=== PATIENT | male | born 1955 | race Caucasian/White ===

== ENCOUNTER 2016-04-06 13:12 | Inpatient (IN) | payer OTHER ==
--- NOTE | ~2016-04-06 | HP ---
History And Physical [facility] [address] [place]. [address] NAME: RHIANNA TAYLOR : 55 STATUS : ADM IN [facility]#: [id number] AGE: 60 ADM/REG DATE : 04/06/16 MR#: [id number] REPORT SERV DATE: 04/06/16 DICTATED BY: DAGO DUNCAN DATE: 04/06/16 REPORT STATUS : Draft TRANSCRIBED BY: MODL DATE: 04/06/16 DATE OF ADMISSION: 04/06/2016 REASON FOR ADMISSION: Increased dyspnea and edema. HISTORY OF PRESENT ILLNESS: The patient is a pleasant 60-year-old white male with a history of coronary artery disease and chronic systolic congestive heart failure, who presented to the emergency department [facility] with complaints of worsening dyspnea, orthopnea, and lower extremity edema over the past six weeks. He had began having dyspnea on exertion initially, but this has progressed to orthopnea to the point where he was having to sleep in a recliner over the past two to three weeks. He describes a significant weight gain of about 12 pounds within the past few days despite taking extra Lasix. His workup here in the emergency department showed a mildly elevated BNP level of 391 with pulmonary vascular congestion on chest x-ray and marked lower extremity edema. He was given IV Bumex and a Pacheco catheter was placed, and he reports that his swelling has improved dramatically as well as his shortness of breath. Currently, he is resting in bed, in no acute distress. PAST MEDICAL HISTORY: Significant for coronary artery disease, status post remote bypass surgery. The patient's last cardiac catheterization was done 03/20/2015, which showed a patent COTE graft to the second diagonal branch with septal collateral vessels from the mid LAD to the right posterior descending branch. All his saphenous vein grafts were previously occluded. His left ventricular ejection fraction was 40% at that time. This study showed no significant change from the previous one and the patient was managed medically. Other history is remarkable for hypertension, hyperlipidemia, peripheral neuropathy, and diabetes which has been poorly controlled up until recently with his last hemoglobin A1c showing significant improvement. PAST SURGICAL HISTORY: Includes cholecystectomy, appendectomy, knee surgery, and redo coronary artery bypass surgery in 2003. SOCIAL HISTORY: The patient has smoked up until about three weeks ago. He is and lives with his . FAMILY HISTORY: Positive for coronary artery disease. REVIEW OF SYSTEMS: The patient complains dyspnea on exertion as well as with bending over. He reports significant orthopnea and has been sleeping in a recliner for the past few weeks. The patient denies any cough, wheeze, or sputum production. He denies any recent fever or chills. No dysuria. He does complain of constipation with hemorrhoids. He also has had some intermittent chest pain as well and this is not necessarily exertional in nature. PHYSICAL EXAMINATION: VITAL SIGNS: Blood pressure is 173/63, heart rate is 66 and regular, respirations are 18 and nonlabored. The patient is afebrile. History And Physical [address] [address] NAME: RHIANNA TAYLOR : 55 STATUS : ADM IN [facility]#: [id number] AGE: 60 ADM/REG DATE : 04/06/16 MR#: [id number] REPORT SERV DATE: 04/06/16 DICTATED BY: DAGO DUNCAN DATE: 04/06/16 REPORT STATUS : Draft TRANSCRIBED BY: CAR DATE: 04/06/16 GENERAL APPEARANCE: The patient is a morbidly obese and chronically ill-appearing white male, in no acute distress. HEENT: Unremarkable. NECK: Shows no jugular venous distention with good carotid upstroke. CHEST: Remarkable for some expiratory wheezes bilaterally as well as a few scattered rhonchi. CARDIOVASCULAR: PMI is lateral to the midclavicular line. S1 is normal. S2 is narrowly split. No gallop is present. ABDOMEN: Somewhat distended, but it is soft and nontender with normal bowel sounds. EXTREMITIES: Show 2+ pitting edema in bilateral lower extremities, but no cyanosis or clubbing. SKIN: Warm and dry with no pallor or icterus. NEURO/PSYCH: The patient is alert and oriented x3 with appropriate affect. LABORATORY AND DIAGNOSTIC DATA: EKG shows sinus bradycardia at the rate of 57 with occasional PACs and inferior scar and nonspecific ST-T changes. No acute injury pattern is present. CBC shows a white count of 6.2, hemoglobin 10.6, hematocrit 33.2, platelets 210. Chemistry panel shows a sodium of 144, potassium 3.6, BUN 29, creatinine 2.0, which is an improvement from 2.6 on labs done by PCP on the 03/30/2016, a week ago. Magnesium is 1.9. Troponin is 0.05 and BNP was 392. Chest x-ray showed some pulmonary vascular congestion but otherwise was benign. IMPRESSION: 1. Acute on chronic systolic congestive heart failure. 2. Coronary artery disease, status post remote bypass surgery. 3. Chronic kidney disease (unsure of the patient's baseline). 4. Hypertension. 5. Obstructive sleep apnea with noncompliance with BiPAP or CPAP therapy. 6. Diabetes mellitus type 2. 7. Morbid obesity. PLAN: 1. We will admit the patient to telemetry and continue diuresis as ordered by the ER physician. We will check labs and an echocardiogram in the morning and consider consulting Nephrology depending on the patient's renal function. 2. Serial cardiac enzymes will be drawn to rule out ischemia. 3. I briefly discussed the importance of sodium restriction and compliance with therapy. Apparently, the patient has a history of poor compliance with medications as well as dietary restrictions. Further interventions to be dictated by clinical course. CARY/CAR Dago Duncan NP History And Physical [address] [address] NAME: RHIANNA TAYLOR : 55 STATUS : ADM IN PAT#: [id number] AGE: 60 ADM/REG DATE : 04/06/16 MR#: [id number] REPORT SERV DATE: 04/06/16 DICTATED BY: DAGO DUNCAN DATE: 04/06/16 REPORT STATUS : Draft TRANSCRIBED BY: MODL DATE: 04/06/16 / [id number] CC: Ez Charles M.D., F.A.C.C. Dr. Wagner Fung
--- NOTE | ~2016-04-06 | CN ---
Consultation Report [facility] [address] [place]. [address] NAME: RHIANNA TAYLOR : 55 STATUS : DIS IN PAT#: [id number] AGE: 60 ADM/REG DATE : 04/06/16 MR#: [id number] REPORT SERV DATE: 04/16/16 DICTATED BY: ROBERT COLEMAN DATE: 04/07/16 REPORT STATUS : Draft TRANSCRIBED BY: MODL DATE: 04/07/16 DATE OF CONSULTATION: CONSULTATION REASON FOR CONSULT: Diabetes management. HISTORY OF PRESENT ILLNESS: This is a pleasant 60-year-old white male who reports that he has had a worsening dyspnea, developed over the past several weeks up to six weeks, also that he has been sleeping in a chair, and lower extremity edema has gotten worse over that timeframe as well as an approximate 12-pound weight gain despite taking some additional Lasix at home. The patient also reports that he has not been using his CPAP on a consistent basis except for the past week when he obtained a new nasal mask. He says that he was recently at the [facility], which is primary care. A lab work was drawn and they told him that his kidney function had worsened. They did stop his metformin at that time, and also told him to stop his VIPUL inhibitor as well. He reports that in the past he had been on Levemir insulin and also Lantus insulin and that he has been on NovoLog insulin in the past too plus metformin, but was not finding this was helping to control his diabetes, and recently within the past few months, he was changed to NPH insulin twice a day and Novolin R insulin with meals along with his metformin and he states that this regimen has given him a better control of his overall sugars and most recent hemoglobin A1c checked in March of this year is 7.8. PAST MEDICAL HISTORY: Includes coronary artery disease, hypertension, hyperlipidemia, diabetes type 2, peripheral neuropathy, and osteoarthritis. PAST SURGICAL HISTORY: Includes a cholecystectomy; an appendectomy; knee surgery; redo coronary artery bypass surgery in 2003; heart catheterization most recently in March of 2015, he has ejection fraction of 40%. SOCIAL HISTORY: Tobacco: Remote. Denies any alcohol use. He is currently , disabled, lives with his . FAMILY HISTORY: Positive for coronary artery disease. REVIEW OF SYSTEMS: Negative except for pertinent as mentioned in the above HPI. PHYSICAL EXAMINATION: GENERAL: This is a generally cooperative, awake and alert x3 for exam, no focal deficits. NECK: No appreciable lymphadenopathy is palpated. +1 JVD. Unable to assess the thyroid given the anatomy and enlarged neck. LUNGS: Diminished to the bases and positive crackles, but otherwise, normal respiratory effort. Of note, when he is sleeping at the beginning of the exam, it was clear he was having apnea event, however. Consultation Report [facility] [id number] [place]. [address] NAME: RHIANNA TAYLOR : 55 STATUS : DIS IN PAT#: [id number] AGE: 60 ADM/REG DATE : 04/06/16 MR#: [id number] REPORT SERV DATE: 04/16/16 DICTATED BY: ROBERT COLEMAN DATE: 04/07/16 REPORT STATUS : Draft TRANSCRIBED BY: CAR DATE: 04/07/16 CARDIOVASCULAR IRBY: No murmurs, rubs, or gallops. Regular rate and rhythm. ABDOMEN: Soft and nontender. Morbidly obese. Unable to assess any of his organs. Active bowel sounds. EXTREMITIES: He has +2 bilateral lower extremity edema. Normal distal pulses. HEENT: PERRLA is noted. Sclerae are clear. Otherwise, skin is warm and dry. LABORATORY DATA: Lab work shows a sodium of 143, potassium 3.6, BUN of 27, and creatinine of 1.78. White blood cells of 6.2, hemoglobin 10.6, and hematocrit 33.2. Troponin of 0.05 and a BNP of 391.8. Blood sugars in review showed a fasting sugar this morning of 62, which at lunch was 107. ASSESSMENT: 1. Diabetes type 2, hemoglobin A1c of 7.8. 2. Acute kidney injury on chronic kidney disease, most recent creatinine 1.78. 3. Acute on chronic systolic heart failure with an ejection fraction of 40%. 4. Morbid obesity. 5. Hypertension. 6. Obstructive sleep apnea. 7. Hypothyroid. PLAN: We will adjust his insulin, decreasing his overall insulin burden, decreasing his NPH and Novolin R. He has likely reached the limit of his ability to continue metformin, would not continue that post hospitalization. Would also recommend decreasing his VIPUL inhibitor at discharge and would also decrease his Neurontin dose going forward, and we will go ahead and decrease his Neurontin here in the hospital. He is continuing diuresis with Bumex per Cardiology. Also discussed the need for an outpatient sleep study and use of CPAP here while hospitalized as well. Given the fact that he is on Synthroid, we will check a TSH and he is complaining of some mild dysuria, we will obtain a UA for completeness sake. I have discussed this at length with the patient and his , and she is in agreement with this plan going forward. We appreciate the opportunity to participate in this consult. LACY/CAR Robert Coleman NP / [id number] CC: Ez Charles M.D., FCIERRA MONROY
--- NOTE | ~2016-04-06 | DS ---
Discharge Summary [facility] [address] [place]. [address] NAME: RHIANNA TAYLOR : 55 STATUS : DIS IN PAT#: [id number] AGE: 60 ADM/REG DATE : 04/06/16 MR#: [id number] REPORT SERV DATE: 04/27/16 DICTATED BY: EZ CHARLES DATE: 04/26/16 REPORT STATUS : Draft TRANSCRIBED BY: MODFabby DATE: 04/26/16 Data Collection from hospitalization DISCHARGE DIAGNOSES: 1. Acute on chronic congestive heart failure. 2. Coronary artery disease. 3. Diabetes mellitus. 4. Chronic renal disease. 5. Hypercholesterolemia. 6. Hypertension. 7. Peripheral neuropathy. 8. Tobacco use. CONSULTATIONS: Robert Jameson NP PROCEDURES PERFORMED: None. MEDICATIONS: Norvasc 5 mg daily, Lipitor 40 mg daily, Coreg 12.5 mg twice a day, vitamin D3 2000 units daily, Benadryl 50 mg every eight hours as needed, TriCor 145 mg daily, ferrous sulfate 325 mg three times a day, Neurontin 300 mg twice a day, [place] 10/325 one tablet three times a day, Novolin N 44 units subcutaneously twice a day, Novolin R 26 units subcutaneously before meals, Imdur 120 mg daily, levothyroxine 37.5 mcg daily, Creon one capsule three times a day with meals, Mag-Ox 400 mg twice a day, Glucophage 500 mg after breakfast and supper as instructed, Dahlia 30 mg twice a day, Theragran-M one tablet daily, fish oil 2000 mg twice a day, Prilosec 20 mg twice a day, Paxil 30 mg daily, K-Dur 20 mEq as instructed, Phenergan 25 mg three times a day as needed, Requip 2 mg four times a day, Demadex 20 mg daily, and clindamycin one application topically twice a day. He was instructed not to continue on furosemide, lisinopril, or meloxicam. CONDITION AT DISCHARGE: Stable. DISPOSITION: The patient was discharged home on a low-sodium diet with activities as instructed. He would follow up with Dr. Shiraz Ramirez as instructed. He would follow up with Dr. Tru Aguila for a sleep study as an outpatient. He would follow up with Dr. Ez Zee as directed. HOSPITAL COURSE: This is a 60-year-old man who has a history of coronary artery disease and chronic systolic congestive heart failure who presented to the emergency department after being referred from the [facility] on the day of this admission with complaints of worsening dyspnea, orthopnea, and lower extremity edema over the past six weeks. He began having dyspnea on exertion initially, but this progressed to orthopnea to the point where he was having to sleep in a recliner over the past two to three weeks prior to admission. He described a significant weight gain of about 12 pounds within the past few days despite taking extra Lasix. Workup in the emergency department showed mildly elevated BNP at 391 with pulmonary vascular congestion on chest x-ray and marked lower extremity edema. He was given IV Bumex and a Pacheco catheter was placed. He reports that his swelling improved dramatically as well as his shortness of breath. He was admitted to the hospital for further evaluation and treatment. Discharge Summary [address] [place]. [address] NAME: RHIANNA TAYLOR KATIA : 55 STATUS : DIS IN PAT#: [id number] AGE: 60 ADM/REG DATE : 04/06/16 MR#: [id number] REPORT SERV DATE: 04/27/16 DICTATED BY: EZ CHARLES DATE: 04/26/16 REPORT STATUS : Draft TRANSCRIBED BY: CAR DATE: 04/26/16 Upon admission, his EKG showed sinus bradycardia with a rate of 57 and occasional PACs and inferior scar and nonspecific ST-T changes. No acute injury pattern was present. Chest x- ray showed some pulmonary vascular congestion, but was otherwise benign. He was felt to have acute on chronic systolic congestive heart failure. He was admitted to telemetry and we continued diuresis as ordered by the emergency room physician. Labs and an echocardiogram would be obtained. Serial cardiac enzymes would be checked to rule out ischemia. We discussed the importance of sodium restriction and compliance with therapy. Apparently, the patient has a history of poor compliance with medication as well as dietary restrictions. The following day, an echocardiogram was performed. The patient was seen by Robert Jameson regarding diabetes management. The patient reported he had not been using his CPAP on a consistent basis except for the past week when he obtained a new nasal mask. He said that lab work was drawn at the [facility] and they told him that his kidney function had worsened, they did stop his metformin at that time, and also told him to stop VIPUL inhibitor as well. He reports in the past that he had been on Levemir insulin and also Lantus insulin and that he had been on NovoLog insulin in the past plus metformin, but was not finding this helpful to control his diabetes. Within the past few months, he was changed to NPH insulin twice a day and Novolin R insulin with meals along with his metformin and he said that this regimen had given him a better control of his overall sugars and most recent hemoglobin A1c in March of this year was 7.8. His insulin was going to be adjusted and we would decrease the overall insulin burden by decreasing his NPH and Novolin R. It was felt that he had likely reached the limit of his ability to continue metformin and we would not continue that post hospitalization. She also recommended decreasing VIPUL inhibitor at discharge and also decrease the Neurontin does going forward. Neurontin would be decreased here in the hospital. Diuresis continued with Bumex. The need for an outpatient sleep study was discussed and use of CPAP here while hospitalized was also discussed. Given the fact that he is on Synthroid, we were going to check a TSH. He did complain of some mild dysuria. Urinalysis would be obtained for completeness sake. On 04/08/2016, he was in no distress. He had some scattered wheezing. He had 1+ left lower extremity edema that had improved significantly. We reinforced the importance of CPAP compliance. Norvasc was increased. Hydralazine was continued. He was changed to oral Bumex. The Pacheco catheter was removed. We encouraged him to ambulate. His swelling had improved. He had less dyspnea. Systolic heart failure was improving. Norvasc was increased. The next day, he did have some hypoglycemia that morning. He did complain of back pain which is chronic. Insulin was adjusted. Oral Demadex was being given. He was wanting to go home. Coreg was decreased. On 04/10/2016, he reported that his breathing and his lower extremity edema were at their baseline. His lungs were clear. He had 1+ edema. Creatinine level was 2.16. He was up sitting in a chair and said he was feeling better. He was not sleeping well. Furosemide was continued. Coreg was decreased. Discharge instructions were given. Due to his improved and stable condition, he was discharged home with the above-stated instructions. Information collected by: Emerita Cruz I submit the above information as my discharge summary. Discharge Summary [facility] [address] [place]. [address] NAME: RHIANNA TAYLOR : 55 STATUS : DIS IN PAT#: [id number] AGE: 60 ADM/REG DATE : 04/06/16 MR#: [id number] REPORT SERV DATE: 04/27/16 DICTATED BY: EZ CHARLES DATE: 04/26/16 REPORT STATUS : Draft TRANSCRIBED BY: MODL DATE: 04/26/16 TG/CAR Ez Charles M.D., Torri / [id number] CC: Ez Charles M.D., CIERRA JOHNSON
[~2016-04-06 13:12] MED LIST: AMYLASE PO; ASA5GR PO; ASABAYER PO; B12250T PO; BEN25 PO; BENADRYL 50 MG50 MG PO; BENGAY TOP; COREG25 PO; FISH OIL PO; FISH-EPA1000 MG PO; FLEX PO; GLUCOPHAGE1000 MG PO; GLUCPH PO; IMDUR120 PO; IMDUR60 PO; IRON SUPPLEMENT PO; L20 PO; LANTUS SC; LIPITOR20 PO; LIPITOR40 PO; LISINOPRIL40 MG PO; LOM PO; LOPID6 PO; LORTAB10 PO; MAG OX PO; MAGOX4 PO; MOBIC7.5 PO; MSCONT15 PO; MSCONTIN PO; MULTIVIT/MIN PO; NITROQUICK0.4 MG SL; NITROSTAT0.4 MG SL; NORCO1 TAB PO; NORV5 PO; NOVOLOG SC; PAXIL30 MG PO; PR25 PO; PREV30 PO; PRILO PO; PRIN10 PO; REQUIP2 PO; REQUIP4 MG PO; SYN.025B PO; TOPAMAX200 MG PO; TRICOR145 PO; VIOKACE 10,4401 EACH PO; X5 PO; [UNRECOGNIZED DRUG - CODE] PO
[2016-04-06 13:39] LABS: BASOPHILS 0.3 %; BASOPHILS ABSOLUTE 0.02 10/3/uL (0.0-0.16); EOSINOPHILS 3.2 %; HEMATOCRIT 33.2 % (40.0-51.0); HEMOGLOBIN 10.6 g/dL (13.6-17.8); IMMATURE GRANULOCYTES 0.2 %; IMMATURE GRANULOCYTES ABSOLUTE 0.01 10/3/uL (0.0-0.11); LYMPHOCYTES 14.8 %; LYMPHOCYTES ABSOLUTE 0.91 10/3/uL (0.67-4.30); MEAN CORPUS HGB CONC 31.9 g/dL (32.0-36.0); MEAN CORPUSCULAR VOLUME 90.7 fL (80-100); MEAN PLATELET VOLUME 9.4 fL (9.2-13.0); MONOCYTES 6.2 %; MONOCYTES ABSOLUTE 0.38 10/3/uL (0.21-1.20); NEUTROPHILS 75.3 %; NEUTROPHILS ABSOLUTE 4.64 10/3/uL (2.02-8.40); PLATELET COUNT 210 10/3/uL (150-400); RED CELL COUNT 3.66 10/6/uL (4.7-6.1)
[2016-04-06 13:45] LABS: INTERNATIONAL NORMAL RATI 1.4 UNITS (-)
[2016-04-06 13:46] LABS: ER CBC TAT 0 Hrs 12 MinsNP; MANUAL DIFF NO %; RBC DISTRIBUTION WIDTH 15.9 % (12.0-16.0); WHITE BLOOD CELLS 6.2 10/3/uL (4.5-10.5)
[2016-04-06 13:48] LABS: PROTIME (NOT ORD) 16.9 SEC (12.0-14.5)
[2016-04-06 13:55] LABS: BUN (BLOOD UREA NITROGEN) 29 MG/DL (6-23); CALCIUM, SERUM 8.5 MG/DL (8.5-10.4); CHLORIDE, SERUM 106 MMOL/L (96-112); CO2 (CARBON DIOXIDE) 29 MMOL/L (24-34); GFR AFRICAN AMERICAN 41 ML/MIN (>=60); GFR NON AFRICAN AMERICAN 35 ML/MIN (>=60); GLUCOSE, SERUM 109 MG/DL (60-99); POTASSIUM, SERUM 3.6 MMOL/L (3.5-5.3); SODIUM, SERUM 144 MMOL/L (135-148)
[2016-04-06 13:58] LABS: CHEST PAIN PROFILE TAT 0 Hrs 24 Mins; TROPONIN I 0.05 NG/ML (<0.05)
[2016-04-06] MEDS ORDERED: NORV5 PO (15:37)
[2016-04-06] MEDS ORDERED: CREON DR 3,0001 EACH PO (15:42)
[2016-04-06] MEDS ORDERED: LIPITOR40 PO (15:43)
[2016-04-06] MEDS ORDERED: COREG25 PO (15:44)
[2016-04-06] MEDS ORDERED: VITAMIN D31000 UNIT PO (15:44)
[2016-04-06] MEDS ORDERED: CLINDAMYCIN 1% TOP (15:45)
[2016-04-06] MEDS ORDERED: FERROUS SULF325 M1 PO (15:46)
[2016-04-06] MEDS ORDERED: BEN25 PO (15:46)
[2016-04-06] MEDS ORDERED: FISH-EPA1000 MG PO (15:46)
[2016-04-06] MEDS ORDERED: TRICOR145 PO (15:46)
[2016-04-06] MEDS ORDERED: L20 PO (15:47)
[2016-04-06] MEDS ORDERED: NEUR300 PO (15:47)
[2016-04-06] MEDS ORDERED: NORCO1 TAB PO (15:47)
[2016-04-06] MEDS ORDERED: INSNOVN SC (15:48)
[2016-04-06] MEDS ORDERED: INSNOVR SC (15:48)
[2016-04-06] MEDS ORDERED: LISINOPRIL40 MG PO (15:49)
[2016-04-06] MEDS ORDERED: LEVOTHYROXIN75 MCG PO (15:49)
[2016-04-06] MEDS ORDERED: MAGOX4 PO (15:49)
[2016-04-06] MEDS ORDERED: IMDUR120 PO (15:49)
[2016-04-06] MEDS ORDERED: MSCONTIN PO (15:50)
[2016-04-06] MEDS ORDERED: GLUCPH PO (15:50)
[2016-04-06] MEDS ORDERED: MOBIC7.5 PO (15:50)
[2016-04-06] MEDS ORDERED: PRILO PO (15:51)
[2016-04-06] MEDS ORDERED: PR25 PO (15:51)
[2016-04-06] MEDS ORDERED: PAXIL30 MG PO (15:51)
[2016-04-06] MEDS ORDERED: THERGRANM PO (15:51)
[2016-04-06] MEDS ORDERED: REQUIP2 PO (15:52)
[2016-04-07 07:08] LABS: A/G RATIO 0.8 (0.7-1.9); ALKALINE PHOSPHATASE 40 U/L (45-117); BUN (BLOOD UREA NITROGEN) 27 MG/DL (6-23); CALCIUM, SERUM 8.6 MG/DL (8.5-10.4); CHLORIDE, SERUM 105 MMOL/L (96-112); CO2 (CARBON DIOXIDE) 28 MMOL/L (24-34); CREATININE 1.78 MG/DL (0.70-1.30); GFR AFRICAN AMERICAN 47 ML/MIN (>=60); GFR NON AFRICAN AMERICAN 41 ML/MIN (>=60); GLOBULIN 3.8 G/DL (2.5-4.1); POTASSIUM, SERUM 3.6 MMOL/L (3.5-5.3); SGOT(AST) 16 U/L (5-40); SGPT(ALT) 18 U/L (5-65); SODIUM, SERUM 143 MMOL/L (135-148); TOTAL BILIRUBIN 0.7 MG/DL (0-1.2); TOTAL PROTEIN 6.8 G/DL (6.0-8.5)
[2016-04-07 07:19] LABS: GLUCOSE, SERUM 66 MG/DL (60-99)
[2016-04-07 07:23] LABS: TROPONIN I 0.05 NG/ML (<0.05)
[2016-04-07 17:31] LABS: ASCORBIC ACID (UR NOT ORDER) NEG (NEG); BILIRUBIN, URINE NEGATIVE (NEG); KETONE, URINE NEGATIVE (NEG); LEUKOCYTE ESTERASE(NOT OR TRACE (NEG); WBC (NOT ORDERED) (RFLEX) 7 (0-5)
[2016-04-08 06:25] LABS: BUN (BLOOD UREA NITROGEN) 32 MG/DL (6-23); CALCIUM, SERUM 8.6 MG/DL (8.5-10.4); CHLORIDE, SERUM 103 MMOL/L (96-112); CO2 (CARBON DIOXIDE) 30 MMOL/L (24-34); CREATININE 2.19 MG/DL (0.70-1.30); GFR AFRICAN AMERICAN 37 ML/MIN (>=60); GFR NON AFRICAN AMERICAN 32 ML/MIN (>=60); GLUCOSE, SERUM 173 MG/DL (60-99); POTASSIUM, SERUM 4.2 MMOL/L (3.5-5.3); SODIUM, SERUM 140 MMOL/L (135-148)
[2016-04-09 05:55] LABS: BASOPHILS 0.3 %; BASOPHILS ABSOLUTE 0.02 10/3/uL (0.0-0.16); EOSINOPHILS 2.9 %; EOSINOPHILS ABSOLUTE 0.23 10/3/uL (0.0-0.53); HEMATOCRIT 31.9 % (40.0-51.0); IMMATURE GRANULOCYTES 0.3 %; IMMATURE GRANULOCYTES ABSOLUTE 0.02 10/3/uL (0.0-0.11); MEAN CORPUS HGB CONC 31.3 g/dL (32.0-36.0); MEAN CORPUSCULAR HEMOGLOB 28.9 pg (26.0-34.0); MEAN CORPUSCULAR VOLUME 92.2 fL (80-100); MEAN PLATELET VOLUME 9.5 fL (9.2-13.0); MONOCYTES 5.8 %; MONOCYTES ABSOLUTE 0.46 10/3/uL (0.21-1.20); NEUTROPHILS 75.7 %; NEUTROPHILS ABSOLUTE 6.05 10/3/uL (2.02-8.40); PLATELET COUNT 203 10/3/uL (150-400); RBC DISTRIBUTION WIDTH 15.6 % (12.0-16.0); RED CELL COUNT 3.46 10/6/uL (4.7-6.1)
[2016-04-09 05:57] LABS: CALCIUM, SERUM 8.8 MG/DL (8.5-10.4); CHLORIDE, SERUM 103 MMOL/L (96-112); CO2 (CARBON DIOXIDE) 29 MMOL/L (24-34); CREATININE 2.16 MG/DL (0.70-1.30); GFR AFRICAN AMERICAN 37 ML/MIN (>=60); GFR NON AFRICAN AMERICAN 32 ML/MIN (>=60); POTASSIUM, SERUM 4.2 MMOL/L (3.5-5.3); SODIUM, SERUM 140 MMOL/L (135-148)
[2016-04-09 05:59] LABS: BUN (BLOOD UREA NITROGEN) 40 MG/DL (6-23); MANUAL DIFF NO %
[2016-04-09 06:00] LABS: GLUCOSE, SERUM 49 MG/DL (60-99)
[2016-04-10 09:10] LABS: BUN (BLOOD UREA NITROGEN) 39 MG/DL (6-23); CALCIUM, SERUM 8.7 MG/DL (8.5-10.4); CHLORIDE, SERUM 101 MMOL/L (96-112); CO2 (CARBON DIOXIDE) 28 MMOL/L (24-34); GFR AFRICAN AMERICAN 36 ML/MIN (>=60); GFR NON AFRICAN AMERICAN 31 ML/MIN (>=60); POTASSIUM, SERUM 4.3 MMOL/L (3.5-5.3); SODIUM, SERUM 138 MMOL/L (135-148)
[2016-04-10 09:11] LABS: GLUCOSE, SERUM 189 MG/DL (60-99)
[2016-04-10] MEDS ORDERED: DEMA20 PO (14:59)
[2016-04-10] MEDS ORDERED: KDUR20 PO (15:00)
== END 2016-04-10 17:56 | disposition home or self-care (01) | DRG 291 ==
LOC: ER 13:12 → 6NO 17:18
PROVIDERS: Emergency Medicine; Internal Medicine Interventional Cardiology; Nurse Practitioner Family
DX: I13.0 Hypertensive heart and chronic kidney disease with heart failure and stage 1 through stage 4 chronic kidney disease, or unspecified chronic kidney disease (principal); I50.23 Acute on chronic systolic (congestive) heart failure; E11.40 Type 2 diabetes mellitus with diabetic neuropathy, unspecified; E11.22 Type 2 diabetes mellitus with diabetic chronic kidney disease; N17.9 Acute kidney failure, unspecified; Z68.41 Body mass index [BMI] 40.0-44.9, adult; N18.3 Chronic kidney disease, stage 3 (moderate); I25.810 Atherosclerosis of coronary artery bypass graft(s) without angina pectoris; E66.01 Morbid (severe) obesity due to excess calories; G47.33 Obstructive sleep apnea (adult) (pediatric); E03.9 Hypothyroidism, unspecified; E78.5 Hyperlipidemia, unspecified; F17.210 Nicotine dependence, cigarettes, uncomplicated; R00.1 Bradycardia, unspecified; M54.9 Dorsalgia, unspecified; E78.00 Pure hypercholesterolemia, unspecified; Z82.49 Family history of ischemic heart disease and other diseases of the circulatory system; Z90.49 Acquired absence of other specified parts of digestive tract; Z79.4 Long term (current) use of insulin
CPT/HCPCS: 71010; 80048; 80053; 81001; 82962; 83735; 83880; 84443; 84484; 85025; 85610; 85730; 94640; 96374; 99285; A9270-GY; C8929; J0360; J1170; Q9957

== ENCOUNTER 2016-04-15 10:25 | Inpatient (IN) | payer OTHER ==
--- NOTE | ~2016-04-15 | DS ---
Discharge Summary [facility] [address] [place]. [address] NAME: RHIANNA TAYLOR : 55 STATUS : DIS IN PAT#: [id number] AGE: 60 ADM/REG DATE : 04/15/16 MR#: [id number] REPORT SERV DATE: 04/30/16 DICTATED BY: EZ AVINA DATE: 04/30/16 REPORT STATUS : Draft TRANSCRIBED BY: MODFabby DATE: 04/30/16 Data Collection from hospitalization DISCHARGE DIAGNOSES: 1. Acute on chronic systolic congestive heart failure. 2. Acute kidney injury on chronic kidney disease. 3. Bradycardia, status post permanent pacemaker. 4. Coronary artery disease. 5. Hypertension. 6. Type 2 diabetes mellitus. 7. Obstructive sleep apnea. 8. Obesity. 9. Hypothyroidism. 10.Hyperlipidemia. 11.Peripheral neuropathy. 12.Osteoarthritis. 13.Former smoker. CONSULTATIONS: Robert García, Dr. Jhony Green, Dr. Jeremy Campa, Dr. Fabian Watt. PROCEDURES: 1. Pacemaker implantation, 04/21/2016. 2. Renal ultrasound, 04/16/2016. DISCHARGE MEDICATIONS: Norvasc 5 mg daily, Lipitor 40 mg at bedtime, Sinemet one tablet three times a day, Coreg 12.5 mg twice a day, vitamin D3 2000 units daily, Benadryl 50 mg every 8 hours as needed, ferrous sulfate 325 mg daily, Neurontin 300 mg twice a day, Santa Claus one tablet three times a day, Novolin N 44 units subcutaneously twice a day, Novolin R 26 units subcutaneously before meals, Imdur 120 mg daily, levothyroxine 37.5 mcg daily, Creon one capsule three times a day with meals, Mag-Ox 400 mg twice a day, MS Contin 30 mg every 12 hours, Theragran-M one tablet daily, fish oil 2000 mg twice a day, Prilosec 20 mg twice a day, Protonix 40 mg before breakfast and supper, Paxil 30 mg daily, MiraLAX powder one packet as instructed, Phenergan 25 mg three times a day as needed, Requip 2 mg four times a day. CONDITION AT DISCHARGE: Stable. DISPOSITION: The patient was discharged home on a low-sodium diet with activities as instructed. He would follow up with Dr. Jeremy Campa in one week following discharge, he would follow up with Dr. Shiraz Ramirez 04/30/2016, and with Dr. Ez Avina as instructed. HOSPITAL COURSE: This is a 60-year-old man, who had recently been admitted for congestive heart failure and discharged only 5 days prior to this admission from [facility]. He re-presented on the day of this admission with complaints of increasing dyspnea again as well as weight gain and edema. He states that he stopped urinating the day prior to admission and this was actually the main reason that he came to the emergency room again. He said he had been compliant with his medication, although he did admit to dietary Discharge Summary [facility] [address] [place]. [address] NAME: RHIANNA TAYLOR : 55 STATUS : DIS IN PAT#: [id number] AGE: 60 ADM/REG DATE : 04/15/16 MR#: [id number] REPORT SERV DATE: 04/30/16 DICTATED BY: EZ AVINA DATE: 04/30/16 REPORT STATUS : Draft TRANSCRIBED BY: MODFabby DATE: 04/30/16 indiscretion stating that he eats whatever he wants. His diet is mostly consistent of sandwiches with lunch meat such as cured ham and turkey. This is despite multiple conversations with him by myself and the heart failure team trying to educate him on a low- sodium diet. Apparently on the day prior to this admission, he felt an urge to urinate, but could only void a very little amount of urine. A Pacheco catheter was placed in the emergency department with 600 mL of urine obtained. He was admitted to the hospital at this time for further evaluation and treatment. Upon admission, he was felt to have acute on chronic systolic heart failure secondary to noncompliance with diet and acute on chronic kidney disease. Diuresis was going to begin as well as management of his multiple medical problems. We would reduce his beta-david secondary to bradycardia. We would continue to attempt to educate the patient about his disease process and the importance of compliance with his treatment regimens. He was seen in consultation by Robert García regarding diabetes management as well as management of renal insufficiency. He was currently receiving diuretic therapy. He has some chest pain. He is a longstanding diabetic. His last hemoglobin A1c was 7.8 on 03/19/2016. On admission, his creatinine level was 2.35. Fluids would not be given at this time. Creatinine would be monitored. We were going to continue the patient's home regimen of NPH and Novolin R. Sliding scale insulin would not be started at this time. He was felt to have stage 3 chronic kidney disease. It appears that his baseline creatinine is probably 2.16 to 2.2. He was being diuresed. We would monitor his creatinine. The patient has heart failure with reduced ejection fraction of 40% - acute exacerbation. MiraLAX was added for his constipation. He was also seen by Dr. Jhony Green regarding acute on chronic kidney disease. The patient is uncircumcised, it indicates that he has some difficulty with urination. There was also some difficulty placing the Pacheco catheter. He is on torsemide at home, but no other nephrotoxic. He denies any nonsteroidal anti-inflammatory drug use. Renal ultrasound was requested. Labs were going to be obtained. He agreed with Pacheco catheterization. Diuresis was continued. The following day, he was in no distress. His shortness of breath and edema had improved. He still reported some ongoing chest pain. The patient said that he always has chest pain. His congestive heart failure was improving. Coreg was reduced. Diuresis was continued. Creatinine level was 2.23. The patient did complain of neuropathy pain. He seemed to be diuresing well. The acute kidney injury on chronic kidney disease had improved. On 04/17/2016, he said he still had some chest pain, but it was not clearly anginal. He had decreased breath sounds in his lung bases. His present medications were continued. Creatinine level was 2.03. IV Lasix was continued. He had bilateral rhonchi. He complained of having increased thirst. He was on 1500 mL fluid restriction. Blood glucose level is controlled. The next day, his renal function seemed to be worse with diuresis. His lungs were clear. Creatinine level had increased to 2.67. Coreg was stopped. It was being held for heart rate greater than 60. He was seen by Dr. Jeremy Campa. The patient had undergone a renal ultrasound. Dr. Campa had been asked to see the patient regarding bradycardia. The patient reports being constantly fatigued and short of breath. His heart rates had dipped down into the 30s and 40s while here. This was sinus bradycardia - not any heart block. He had no presyncope or syncope. He did have some renal insufficiency. He was on carvedilol. The carvedilol had been stopped and his renal insufficiency was slowly improving. Despite this, he was still having heart rates down into the 40s. His Discharge Summary [facility] [address] [place]. [address] NAME: RHIANNA TAYLOR : 55 STATUS : DIS IN PAT#: [id number] AGE: 60 ADM/REG DATE : 04/15/16 MR#: [id number] REPORT SERV DATE: 04/30/16 DICTATED BY: EZ AVINA DATE: 04/30/16 REPORT STATUS : Draft TRANSCRIBED BY: MODL DATE: 04/30/16 electrocardiogram showed sinus bradycardia in the 40s with small inferolateral Q-waves. He was felt to have symptomatic sinus bradycardia. He had a need for a beta david. It was felt that we would need to give the patient another day or so to let the Coreg wash out his system, to try and get an idea of what his baseline heart rate was. There did not appear to be any other reversible cause. TSH was within normal limits about a month prior to this admission. We discussed the fact that he would benefit from a beta-david because of his congestive heart failure, coronary artery disease, and hypertension. The possibility of pacemaker placement was also discussed. We would watch another 24 hours to see what his heart rate is and then possibly proceed with pacemaker placement. The patient definitely wanted to feel better and at this time he was leaning toward wanting to take a beta-david even if he needs a pacemaker. The patient and his were in favor of this. On 04/19/2016, the patient was seen by Dr. Fabian Watt regarding scrotal edema. The patient has extensive scrotal edema. Placement of a Pacheco catheter is being quite difficult. The patient said it took three nurses [address] the catheter. The patient and his state that with diuretic therapy his scrotal edema was much better. He had not had any urologic procedures in the past. A trial of tamsulosin was going to begin. It was felt that his scrotal edema was secondary to congestive heart failure. It was suspected that the difficulty with catheterization was not secondary to prostate blockage, but rather severe penoscrotal edema in an uncircumcised man. He recommended that we keep this catheter until after his pacemaker placement. The Pacheco could be removed at that point. As long as the patient was voiding, his baseline urinary symptoms are better. He would follow up with the patient two months following discharge in the office. The patient and his agreed with this and he felt better than he had in a long time. He had 1+ bilateral lower extremity edema. The following day, the patient was really wanting to proceed with pacemaker placement. He had some heart rates into the 50s (better) and he was feeling better with it. Telemetry revealed normal sinus rhythm/sinus bradycardia. The patient and his reported that the patient does have Parkinson disease. Sinemet was started. Supportive care continued. His Flomax was continued. He was up sitting in a chair. He had no dyspnea. His scrotal edema had decreased. His urine was clear. Renal function was stable at this time. On 04/21/2016, he had no new complaints. He was anxious to go home. The patient underwent [employer] pacemaker placement. Discharge planning was performed. The Pacheco catheter was going to be removed. He wanted to go home. He did have rhonchi bilaterally. Discharge instructions were given. Due to his improved and stable condition, he was discharged home with the above-stated instructions. Information collected by: Emerita Cruz I submit the above information as my discharge summary. ALFA/CAR Ez Avina M.D., F.A.C.C. / [id number] CC: Ez Avina M.D., F.A.C.C. Discharge Summary [address] [address] NAME: RHIANNA TAYLOR : 55 STATUS : DIS IN PAT#: [id number] AGE: 60 ADM/REG DATE : 04/15/16 MR#: [id number] REPORT SERV DATE: 04/30/16 DICTATED BY: EZ AVINA DATE: 04/30/16 REPORT STATUS : Draft TRANSCRIBED BY: MODL DATE: 04/30/16 Jhony Green M.D. Jeremy Campa M.D. Fabian Watt M.D.
--- NOTE | ~2016-04-15 | CN ---
Consultation Report [facility] [address] [place]. [address] NAME: RHIANNA TAYLOR : 55 STATUS : ADM IN PAT#: [id number] AGE: 60 ADM/REG DATE : 04/15/16 MR#: [id number] REPORT SERV DATE: 04/19/16 DICTATED BY: JEREMY MITTAL DATE: 04/19/16 REPORT STATUS : Draft TRANSCRIBED BY: MODL DATE: 04/19/16 CONSULTATION DATE OF CONSULTATION: 04/19/2016 REASON FOR THE VISIT: Bradycardia. HISTORY OF PRESENT ILLNESS: Mr. Taylor is a 60-year-old man with a long history of coronary artery disease, status post CABG x2. He also has congestive heart failure with an ejection fraction of around 40 to 45%. He was recently in the hospital for heart failure exacerbation. He was discharged home about 5 days ago and then was readmitted with the same. His heart rates have dipped down into the 30s and 40s while here. This is sinus bradycardia, not any heart block. The patient reports being constantly fatigued and short of breath. No presyncope or syncope. He has some renal insufficiency. He is on carvedilol. The carvedilol has been stopped and the renal insufficiency is slowly improving. Despite this, he is still having heart rates down into the 40s. PAST MEDICAL HISTORY: 1. Coronary artery disease with history of CABG. 2. Congestive heart failure with ejection fraction around 40 to 45%. 3. Hypertension. 4. Hyperlipidemia. 5. Diabetes. 6. Renal insufficiency. 7. Chronic pain. 8. Sleep apnea. SOCIAL HISTORY: He is . He does not smoke at this time. It seems as if there are some medical non adherence issues with medication and diet. FAMILY HISTORY: There is coronary artery disease in his family. HOME MEDICATIONS: Please see the list in the chart as it is extensive. Relevant cardiac medications are carvedilol 12.5 mg b.i.d., amlodipine, Imdur, torsemide. ALLERGIES: HE IS ALLERGIC TO NAPROSYN. REVIEW OF SYSTEMS: A 10 system review was asked and is negative except for noted above in history of present illness. PHYSICAL EXAMINATION: VITAL SIGNS: Temperature 97.8, heart rate 44, blood pressure 143/73. GENERAL: Mr. Taylor is a well-developed, overweight man, in no acute distress. He is alert Consultation Report [facility] [address] [place]. [address] NAME: RHIANNA TAYLOR : 55 STATUS : ADM IN PAT#: [id number] AGE: 60 ADM/REG DATE : 04/15/16 MR#: [id number] REPORT SERV DATE: 04/19/16 DICTATED BY: JEREMY MITTAL DATE: 04/19/16 REPORT STATUS : Draft TRANSCRIBED BY: MODL DATE: 04/19/16 and oriented to person and place. HEENT: Negative. NECK: Too large to evaluate for JVD. LUNGS: Have rhonchi bilaterally. No wheezing. No crackles. HEART: Tones are regular. Little slow. No obvious murmur. ABDOMEN: The abdominal exam is negative. Has good bowel sounds. EXTREMITIES: Exam shows minimal chronic pitting edema in the legs. SKIN: Shows some bruising. No rash. NEUROLOGIC: He is intact with normal speech. He moves all four extremities equally. LAB DATA: TSH was normal about a month ago. White blood cell count 5, hematocrit 30, platelet count 265. Sodium 141, potassium 4.6, BUN 62, creatinine 2.5. He has electrocardiogram that shows sinus bradycardia in the 40s with small inferolateral Q- waves. IMPRESSION: 1. Symptomatic sinus bradycardia. 2. Need for beta david. 3. Renal insufficiency. 4. Coronary artery disease. 5. Congestive heart failure with ejection fraction between 40 and 45%. PLAN: We will give Mr. Taylor another day or so to let the Coreg wash out of his system to try to get an idea what his baseline heart rate is. There does not appear to be any other reversible cause. TSH was within normal limits about a month ago. We have also discussed the fact that he would benefit from a beta david because of his congestive heart failure, coronary artery disease, and hypertension. We discussed the possibility of pacemaker placement in this setting. We will watch another 24 hours, see what his heart rate is, and then possibly proceed with pacemaker placement. He understands this is not life or at this time. However, he definitely wants to feel better and at this time he is leaning towards wanting to take a beta david even if he needs a pacemaker. Today, we also discussed all the risks of pacemaker placement as well as follow up, alternatives, procedural details, and the aforementioned indications. He and his are in favor of this if we come to this agreement tomorrow. KIRK/CAR Jeremy Mittal M.D. / [id number] Consultation Report [address] [address] NAME: RHIANNA TAYLOR : 55 STATUS : ADM IN PAT#: [id number] AGE: 60 ADM/REG DATE : 04/15/16 MR#: [id number] REPORT SERV DATE: 04/19/16 DICTATED BY: JEREMY MITTAL DATE: 04/19/16 REPORT STATUS : Draft TRANSCRIBED BY: CAR DATE: 04/19/16 CC: Ez Charles M.D., F.A.C.C.
--- NOTE | ~2016-04-15 | CN ---
Consultation Report [facility] [id number] [place]. [address] NAME: RHIANNA TAYLOR : 55 STATUS : ADM IN PAT#: [id number] AGE: 60 ADM/REG DATE : 04/15/16 MR#: [id number] REPORT SERV DATE: 04/15/16 DICTATED BY: GABE GARG DATE: 04/15/16 REPORT STATUS : Draft TRANSCRIBED BY: MODL DATE: 04/15/16 NEPHROLOGY CONSULTATION DATE OF CONSULTATION: INDICATION FOR CONSULTATION: Acute on chronic kidney disease. HISTORY OF PRESENT ILLNESS: Mr. Taylor is a 60-year-old male seen for acute on chronic kidney disease following admission for declining urine output and shortness of breath. He was recently admitted earlier this month for volume overload. His baseline creatinine appears to be 2.1 to 2.2, and on admission, his creatinine was 2.35. He is uncircumcised and indicates that he has some difficulty with urination. There was also difficulty in placement of Pacheco since admission. He is on torsemide at home, no other nephrotoxic. He denies nonsteroidal antiinflammatory drug use. PAST MEDICAL HISTORY: 1. CKD, stage III to IV, baseline creatinine 2.1 to 2.2; recurrent chest pain/angina; coronary artery disease with four-vessel CABG in 1999, five-vessel CABG in 2002, multiple PCIs. 2. Type 2 diabetes mellitus. 3. Chronic systolic CHF with ejection fraction of 40%. 4. Hypertension. 5. Obstructive sleep apnea. 6. COPD. 7. History of diverticulitis. 8. History of pancreatitis. 9. Irritable bowel syndrome. 10.Restless legs syndrome. 11.Diabetic retinopathy. 12.Questionable Parkinson disease. 13.Multiple TIAs. 14.Osteoarthritis. 15.Peripheral neuropathy. 16.Hyperlipidemia. 17.Remote resection of melanoma. 18.Gastroesophageal reflux disease. 19.Hypothyroidism. SURGERIES: Include melanoma resection, coronary artery bypass grafting in 1999 and 2002, cholecystectomy, appendectomy, and knee surgery. ALLERGIES: ANAPROX. HOME MEDICATIONS: Amlodipine, Lipitor, Coreg, vitamin D3, Benadryl, ferrous sulfate, Consultation Report [facility] [address] [place]. [address] NAME: RHIANNA TAYLOR : 55 STATUS : ADM IN PAT#: [id number] AGE: 60 ADM/REG DATE : 04/15/16 MR#: [id number] REPORT SERV DATE: 04/15/16 DICTATED BY: GABE GARG DATE: 04/15/16 REPORT STATUS : Draft TRANSCRIBED BY: CAR DATE: 04/15/16 Neurontin, hydrocodone, NPH insulin, regular insulin, Imdur, levothyroxine, Creon, mag oxide, morphine sulfate, Theragran, vitamin, fish oil, Prilosec, Paxil, potassium, Phenergan, Requip, and torsemide. FAMILY HISTORY: Mother, father, three siblings with cancer. Sister with DVT. Multiple family members with coronary artery disease. SOCIAL HISTORY: The patient lives with spouse. 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 Smokes pipes every day. Denies alcohol or illicit drug use. REVIEW OF SYSTEMS: HEENT: No change in visual acuity. No epistaxis. No otic infection. No pharyngitis. PULMONARY: Positive for shortness of breath. No hemoptysis. No wheezing. CARDIAC: Recurrent chest pain. Lower extremity edema. Exertional dyspnea. : Difficulty with urination, some hesitation on voiding, declining urine output. No gross hematuria. MUSCULOSKELETAL: Pain in back, knees. INTEGUMENT: No itching. No rash. GI: No nausea, vomiting, or melena. Does have constipation. NEUROLOGIC: No lateralizing weakness or seizure disorder. Remainder of 12-point review of systems is negative. PHYSICAL EXAMINATION: GENERAL: Morbidly obese male. Pleasant, responsive. VITAL SIGNS: Blood pressure 140/70, temperature 96.9, pulse 52, respiratory rate 18. HEENT: Eyes, no scleral icterus. Pupils equal, reactive to light. Extraocular movement intact. Nares patent. No discharge. Throat, no injection. Mucous membranes moist. NECK: No thyromegaly, masses, bruits. CHEST/LUNGS: Decreased breath sounds. Basilar crackles posteriorly. Questionable dullness to percussion at bases. CARDIAC: Regular rate and rhythm, 1/6 systolic ejection murmur. No gallop. No rub. ABDOMEN: Morbidly obese. Unable to appreciate hepatosplenomegaly masses. No bruits. Bowel sounds present in all quadrants. : Indwelling Pacheco. RECTAL: Not performed. EXTREMITIES: 2+ edema. No calf tenderness. DERMIS: No rash. No skin lesions. NEUROLOGIC: Cranial nerves intact. No lateralizing weakness. IMPRESSION: 1. Acute on chronic kidney disease, prerenal versus urinary retention. No identifiable nephrotoxic excluding. 2. Recurrent chest pain with known coronary artery disease. Consultation Report [facility] [address] [place]. [address] NAME: RHIANNA TAYLOR : 55 STATUS : ADM IN [facility]#: [id number] AGE: 60 ADM/REG DATE : 04/15/16 MR#: [id number] REPORT SERV DATE: 04/15/16 DICTATED BY: GABE GARG DATE: 04/15/16 REPORT STATUS : Draft TRANSCRIBED BY: CAR DATE: 04/15/16 3. Coronary artery disease with prior coronary artery bypass grafting, four-vessels in 1999 with subsequent five-vessel bypass grafting in 2002 and multiple PCIs. 4. Type 2 diabetes mellitus. 5. Chronic systolic congestive heart failure, ejection fraction 40%. 6. Hypertension. 7. Obstructive sleep apnea. 8. Morbid obesity. 9. Chronic obstructive pulmonary disease. 10.Hypothyroidism. 11.Gastroesophageal reflux disease. 12.Neuropathy. 13.Hyperlipidemia. 14.History of pancreatitis. 15.History of diverticulitis. 16.Osteoarthritis. PLAN: 1. Ultrasound. 2. Labs. 3. Concur with Pacheco catheterization. 4. Continue diuresis. MINDI/CAR Gabe Garg M.D. / [id number] CC: Ez Charles M.D., F.A.C.C.
--- NOTE | ~2016-04-15 | HP ---
History And Physical [facility] [address] [place]. [address] NAME: RHIANNA TAYLOR : 55 STATUS : ADM IN PAT#: [id number] AGE: 60 ADM/REG DATE : 04/15/16 MR#: [id number] REPORT SERV DATE: 04/15/16 DICTATED BY: DAGO DUNCAN DATE: 04/15/16 REPORT STATUS : Draft TRANSCRIBED BY: MODL DATE: 04/15/16 DATE OF ADMISSION: 04/15/2016 HISTORY OF PRESENT ILLNESS: The patient is a 60-year-old white male, who was just admitted for congestive heart failure and discharged only five days ago from [facility], who re-presented today with complaints of increasing dyspnea again as well as weight gain and edema. He also states that he had stopped urinating yesterday and this was actually the main reason that he sought care in the emergency room again. He states he has been compliant with his medications, although he admits to dietary indiscretion stating that he pretty much eats whatever he wants. His diet mostly consists of sandwiches with lunch meat such as cured ham and turkey. This is despite multiple conversations with him by myself and the heart failure team trying to educate him on a low-sodium diet. Apparently yesterday, he reports that he felt the urge to urinate, but could only void a very little mount of urine. A Pacheco catheter was placed in the emergency department with 600 mL of urine obtained. Currently, the patient is resting in bed, in no acute distress. PAST MEDICAL HISTORY: Significant for coronary artery disease, status post remote redo bypass surgery. He also has a history of chronic systolic heart failure with an ejection fraction of 45% as well as hypertension, hyperlipidemia, diabetes, chronic kidney disease, chronic back pain, and peripheral neuropathy. The patient has significant obstructive sleep apnea, and is not compliant with his CPAP therapy. PAST SURGICAL HISTORY: Includes redo coronary artery bypass surgery in 2003, as well as remote cholecystectomy, appendectomy, and previous knee surgery. SOCIAL HISTORY: The patient recently quit smoking. He is disabled and lives with his at home. FAMILY HISTORY: Positive for coronary artery disease. REVIEW OF SYSTEMS: The patient complains dyspnea on exertion as well as orthopnea and having to sleep in a recliner. No significant cough, wheezing, or sputum production. No recent fever or chills. The patient has chronic constipation, but no diarrhea. He does describe some mild dysuria. The patient also complains of intermittent chest pain, which has been more noticeable recently. It does seem to be worsened with exertion at times. He reports that he has had to take some nitroglycerin and this does relieve the pain. PHYSICAL EXAMINATION: VITAL SIGNS: Blood pressure is 117/59, heart rate is 50 and regular, although the patient has had some bradycardia down to the 30s and 40s at times, respirations are 18 and nonlabored, and the patient is afebrile. GENERAL APPEARANCE: The patient is a morbidly obese, chronically ill-appearing white male, in no acute distress. HEENT: Unremarkable. NECK: Very thick, but no obvious jugular venous distention is noted. History And Physical [address] [address] NAME: RHIANNA TAYLOR : 55 STATUS : ADM IN [facility]#: [id number] AGE: 60 ADM/REG DATE : 04/15/16 MR#: [id number] REPORT SERV DATE: 04/15/16 DICTATED BY: DAGO DUNCAN DATE: 04/15/16 REPORT STATUS : Draft TRANSCRIBED BY: CAR DATE: 04/15/16 CHEST: Clear to auscultation bilaterally. CARDIOVASCULAR: PMI is nondisplaced. S1 is normal. S2 is narrowly split. No gallop is present. ABDOMEN: Obese, but soft and nontender with normal bowel sounds. EXTREMITIES: Show 2+ pitting edema in the lower extremities bilaterally, but no cyanosis or clubbing. SKIN: Warm and dry with no pallor or icterus. The patient does have some scattered scabs on his face. NEURO/PSYCH: The patient is alert and oriented x3 with appropriate affect. LABORATORY AND DIAGNOSTIC DATA: Chest x-ray indicates mild volume overload. Chemistry profile shows a sodium of 144, potassium 4.8, BUN 38, creatinine 2.35, magnesium 2.8. Troponin is negative at 0.03. The BNP level was mildly elevated at 307. IMPRESSION: 1. Acute on chronic systolic heart failure secondary to noncompliance with diet. 2. Acute on chronic kidney disease. 3. Coronary artery disease with some symptoms of angina. 4. Sinus bradycardia, on beta david. 5. Hypertension, currently stable. 6. Diabetes mellitus type 2. 7. Obstructive sleep apnea. 8. Morbid obesity. PLAN: 1. We will admit the patient for diuresis and management of his multiple medical problems. 2. Reduce beta david secondary to bradycardia. 3. Consult Nephrology. 4. We will continue to attempt to educate the patient about his disease process and the importance of compliance with his treatment regimen. EBB/MODL Dago Duncan NP / [id number] CC: Ez Charles M.D., F.A.C.CLalo Bell
--- NOTE | ~2016-04-15 | CN ---
Consultation Report [facility] [address] [place]. [address] NAME: RHIANNA TAYLOR : 55 STATUS : ADM IN PAT#: [id number] AGE: 60 ADM/REG DATE : 04/15/16 MR#: [id number] REPORT SERV DATE: 04/15/16 DICTATED BY: DATE: REPORT STATUS : Draft TRANSCRIBED BY: MODL DATE: 04/15/16 DATE OF CONSULTATION: CONSULTATION/HISTORY AND PHYSICAL CONSULTATION REASON: Diabetes management as well as management of renal insufficiency. HISTORY OF PRESENT ILLNESS: The patient was admitted to hospital with heart failure exacerbation managed by Dr. Charles. He is currently getting diuretic therapy. He also has some chest pain, which is also being managed by Dr. Charles. He is a long- standing diabetic. His last hemoglobin A1c was 7.8 on 03/19/2016. The patient is on NPH 44 units subcu b.i.d. as well as 26 units of regular insulin prior to meals. We will continue his home regimen and monitor his blood sugars. His creatinine on admission was 2.35, looking back in the records it looks like his baseline is possibly 2.16 to 2.2. We will monitor this. We will not give fluids at this time. Considering that Dr. Charles is diuresing the patient for his acute heart failure exacerbation. We will monitor his creatinine in the morning and proceed from there. The patient was recently hospitalized and discharged with a heart failure exacerbation earlier this month. Apparently for the last three days, he has developed shortness of breath and chest pain and decided to come back to the emergency department for further evaluation. PAST MEDICAL HISTORY: Coronary artery disease, hypertension, obstructive sleep apnea, hyperlipidemia, morbid obesity, hypothyroidism, diabetes mellitus type 2, peripheral neuropathy, osteoarthritis, heart failure with reduced ejection fraction of 40%. PAST SURGICAL HISTORY: Cholecystectomy, appendectomy, knee surgery, coronary artery bypass grafting, last heart catheterization was in March 2013. FAMILY HISTORY: Does have a significant history of coronary artery disease. SOCIAL HISTORY: The patient has remote history of tobacco abuse; however, he no longer abuses tobacco. He denies alcohol and illicit drug use. He is and is a and disabled at this time. REVIEW OF SYSTEMS: Negative except for what was mentioned above. PHYSICAL EXAMINATION: GENERAL: The patient is alert and oriented x3 with no focal deficits. He is cooperative; however, he is quite sleepy. He states that he has not slept in the last three nights due to shortness of breath and chest pain. NECK: The patient is quite obese and is difficult to palpate the thyroid. He does have some JVD present. CARDIOVASCULAR: S1, S2 is present. No murmurs, rubs, or gallops are noted. He has a regular rate and rhythm. Consultation Report [facility] [id number] [place]. [address] NAME: RHIANNA TAYLOR : 55 STATUS : ADM IN PAT#: [id number] AGE: 60 ADM/REG DATE : 04/15/16 MR#: [id number] REPORT SERV DATE: 04/15/16 DICTATED BY: DATE: REPORT STATUS : Draft TRANSCRIBED BY: CAR DATE: 04/15/16 LUNGS: Decreased probably due to body habitus. He does have some crackles in the bases. He currently reports some dyspnea; however, no tachypnea, diaphoresis, or accessary muscle use is noted. He is on 2 L nasal cannula at this time and O2 saturation of 99%. ABDOMEN: Soft, nontender. He does have bowel sounds present; however, he reports constipation. He has not had a bowel movement in one week. He is morbidly obese. Unable to palpate organs at this time. EXTREMITIES: He does have +1 lower extremity edema. Peripheral pulses are palpable. NEURO: Pupils are equal, round, reactive to light and accommodation. Sclerae clear. Again, the patient follows commands. He is alert and oriented x4. No focal deficits noted. EOMs are intact. ASSESSMENT AND PLAN: 1. Diabetes mellitus type 2. As noted above, I will continue the patient's home regimen of NPH 44 units b.i.d. as well as Novolin R 26 units prandial dosing prior to meals. I will not place the patient on sliding scale at this time. His last blood sugar was 86. The patient will be on hypoglycemia management protocol. Again, his hemoglobin A1c on 03/19/2016 was 7.8, I will not repeat this at this time. 2. Chronic kidney disease stage 3. Again, the patient's creatinine is 2.35. It appears that his baseline is probably 2.16 to 2.2. I will not add fluids to his regimen at this time, considering he is being diuresed for his acute heart failure exacerbation. We will monitor his creatinine. I will check in the morning and go from there. 3. Heart failure with reduced ejection fraction of 40%, acute exacerbation. This is managed by the primary team with Dr. Charles. 4. Chest pain also managed by the primary team with Dr. Charles. 5. Constipation. I will add MiraLAX to the patient's regimen. We appreciate the consultation. We will follow along with the patient. CLR/MODL Robert García NP / [id number] CC: Ez Charles M.D., F.A.C.C. Anibal Tineo MD
--- NOTE | ~2016-04-15 | CN ---
Consultation Report [facility] [address] [place]. [address] NAME: RHIANNA TAYLOR : 55 STATUS : ADM IN PAT#: [id number] AGE: 60 ADM/REG DATE : 04/15/16 MR#: [id number] REPORT SERV DATE: 04/19/16 DICTATED BY: LUÍS FERMIN DATE: 04/19/16 REPORT STATUS : Draft TRANSCRIBED BY: MODL DATE: 04/19/16 DATE OF CONSULTATION: 04/19/2016 CHIEF COMPLAINT: Scrotal edema. HISTORY OF PRESENT ILLNESS: Mr. Taylor is a 60-year-old with chronic problems with CHF and nocturia. He does use a CPAP for sleep apnea. He is admitted with renal insufficiency and a CHF exacerbation. He is noted to be bradycardic. He had extensive scrotal edema, and placement of a Pacheco catheter was quite difficult. Upon admission, he tells me it took three nurses to place the catheter. He and his now relate that with diuretic therapy, his scrotal edema is much better. He has not had any urologic procedures in the past. There are plans for a pacemaker placement on Tuesday04/20/2016. PAST MEDICAL HISTORY: Coronary artery disease, status post CABG x2; hypertension; diabetes; chronic renal insufficiency; chronic pain; sleep apnea. SOCIAL HISTORY: . Currently nonsmoker. FAMILY HISTORY: Coronary artery disease. MEDICATIONS: List is reviewed in the chart. He is on Imdur, torsemide, and Bumex. No BPH medicines at home. He was started on Flomax this morning. REVIEW OF SYSTEMS: Positive for shortness of breath, snoring, nocturia x2-3, negative for hematuria or incontinence, otherwise review is negative x10 body systems. PHYSICAL EXAMINATION: VITAL SIGNS: Temperature 97.8, pulse 44, blood pressure 143/73, respirations 16. GENERAL: Chronically ill, morbidly obese, 60-year-old, appearing older than stated age, in no acute distress. He is jovial and pleasant. HEENT: Sclerae anicteric. LUNGS: Clear. HEART: Bradycardic. CHEST: Clear anteriorly. ABDOMEN: Soft, morbidly obese. No palpable mass. No rebound or guarding. No right or left CVA tenderness. : Bladder is not distended. Phallus is uncircumcised. There is 2+ penile and scrotal edema. Testes are not discretely palpable. There is no inguinal hernia. RECTAL: Digital rectal exam shows a 20 g firm prostate. No rectal masses. No prostate nodularity. LABORATORY DATA: Creatinine is between 2.5 and 2.6. No PSA to review. IMPRESSION: Consultation Report [facility] [address] [place] [address] NAME: RHIANNA TAYLOR : 55 STATUS : ADM IN [facility]#: [id number] AGE: 60 ADM/REG DATE : 04/15/16 MR#: [id number] REPORT SERV DATE: 04/19/16 DICTATED BY: LUÍS FERMIN DATE: 04/19/16 REPORT STATUS : Draft TRANSCRIBED BY: CAR DATE: 04/19/16 1. Scrotal edema secondary to congestive heart failure. 2. Nocturia. PLAN: Trial of tamsulosin is okay. I suspect the difficulty with catheterization was not secondary to prostate blockage, but rather severe penoscrotal edema in an uncircumcised man. I would keep the catheter until after his pacemaker placement tomorrow. Remove the Pacheco catheter at that point. I will leave a prescription for Flomax on the chart. As long as he is voiding with baseline urinary symptoms or better, I will see him back in two months in the office. He and his were in agreement with this. [facility]/CAR Luís Fermin M.D. / [id number] CC: Ez Charles M.D., F.A.C.C.
[2016-04-15 09:02] LABS: ALLENS TEST Pos; BE (BASE EXCESS) 2.4 MEQ/L (0 +/- 2.5); CARBOXYHEMOGLOBIN 1.2 % (0-3); HCO3 (ACTUAL BICARBONATE) 27.7 MEQ/L (23-27); HEMOBLOGIN CONTENT 10.8 G/DL (14-18); INSTRUMENT SERIAL # 8087; METHEMOGLOBIN 0.3 % (0-3); O2 CONTENT 14.3 VOL% (18-24); PCO2 (CO2 TENSION) 46 MMHG (35-45); PO2 (O2 TENSION) 78 MMHG (79-93); SAMPLE Arterial
[2016-04-15 09:39] LABS: BASOPHILS 0.6 %; BASOPHILS ABSOLUTE 0.03 10/3/uL (0.0-0.16); EOSINOPHILS 3.8 %; EOSINOPHILS ABSOLUTE 0.19 10/3/uL (0.0-0.53); ER CBC TAT 0 Hrs 05 Mins; HEMATOCRIT 31.5 % (40.0-51.0); HEMOGLOBIN 9.7 g/dL (13.6-17.8); LYMPHOCYTES ABSOLUTE 1.04 10/3/uL (0.67-4.30); MEAN CORPUS HGB CONC 30.8 g/dL (32.0-36.0); MEAN CORPUSCULAR HEMOGLOB 28.4 pg (26.0-34.0); MEAN CORPUSCULAR VOLUME 92.4 fL (80-100); MEAN PLATELET VOLUME 9.3 fL (9.2-13.0); MONOCYTES 4.6 %; MONOCYTES ABSOLUTE 0.23 10/3/uL (0.21-1.20); NEUTROPHILS ABSOLUTE 3.47 10/3/uL (2.02-8.40); PLATELET COUNT 253 10/3/uL (150-400); RBC DISTRIBUTION WIDTH 15.5 % (12.0-16.0); RED CELL COUNT 3.41 10/6/uL (4.7-6.1)
[2016-04-15 09:41] LABS: MANUAL DIFF NO %
[2016-04-15 09:45] LABS: INTERNATIONAL NORMAL RATI 1.4 UNITS (-); PARTIAL THROMBO TIME 28.6 SEC (22.5-37.2); PROTIME (NOT ORD) 17.1 SEC (12.0-14.5)
[2016-04-15 09:56] LABS: BUN (BLOOD UREA NITROGEN) 38 MG/DL (6-23); CALCIUM, SERUM 7.9 MG/DL (8.5-10.4); CHEST PAIN PROFILE TAT 0 Hrs 22 Mins; CHLORIDE, SERUM 107 MMOL/L (96-112); CO2 (CARBON DIOXIDE) 32 MMOL/L (24-34); CREATININE 2.35 MG/DL (0.70-1.30); GFR AFRICAN AMERICAN 34 ML/MIN (>=60); GFR NON AFRICAN AMERICAN 29 ML/MIN (>=60); POTASSIUM, SERUM 4.8 MMOL/L (3.5-5.3); SODIUM, SERUM 144 MMOL/L (135-148); TROPONIN I 0.03 NG/ML (<0.05)
[2016-04-15 10:00] LABS: GLUCOSE, SERUM 117 MG/DL (60-99)
[~2016-04-15 10:25] MED LIST changes: +CLINDAMYCIN 1% TOP; +CREON DR 3,0001 EACH PO; +DEMA20 PO; +FERROUS SULF325 M1 PO; +INSNOVN SC; +INSNOVR SC; +KDUR20 PO; +LEVOTHYROXIN75 MCG PO; +NEUR300 PO; +THERGRANM PO; +VITAMIN D31000 UNIT PO
[2016-04-16 06:05] LABS: BASOPHILS 0.5 %; BASOPHILS ABSOLUTE 0.03 10/3/uL (0.0-0.16); EOSINOPHILS 3.1 %; HEMATOCRIT 34.4 % (40.0-51.0); IMMATURE GRANULOCYTES 0.2 %; IMMATURE GRANULOCYTES ABSOLUTE 0.01 10/3/uL (0.0-0.11); LYMPHOCYTES 15.9 %; LYMPHOCYTES ABSOLUTE 1.04 10/3/uL (0.67-4.30); MEAN CORPUSCULAR HEMOGLOB 29.3 pg (26.0-34.0); MEAN CORPUSCULAR VOLUME 91.7 fL (80-100); MEAN PLATELET VOLUME 9.4 fL (9.2-13.0); MONOCYTES 6.7 %; MONOCYTES ABSOLUTE 0.44 10/3/uL (0.21-1.20); NEUTROPHILS 73.6 %; NEUTROPHILS ABSOLUTE 4.82 10/3/uL (2.02-8.40); PLATELET COUNT 283 10/3/uL (150-400); RBC DISTRIBUTION WIDTH 15.6 % (12.0-16.0); RED CELL COUNT 3.75 10/6/uL (4.7-6.1); WHITE BLOOD CELLS 6.5 10/3/uL (4.5-10.5)
[2016-04-16 06:07] LABS: ALBUMIN 3.2 G/DL (3.5-5.0); BUN (BLOOD UREA NITROGEN) 38 MG/DL (6-23); CHLORIDE, SERUM 106 MMOL/L (96-112); CO2 (CARBON DIOXIDE) 30 MMOL/L (24-34); COMPLEMENT C3 170 MG/DL (75-161); COMPLEMENT C4 36.1 MG/DL (16-47); CREATININE 2.23 MG/DL (0.70-1.30); GFR AFRICAN AMERICAN 36 ML/MIN (>=60); GFR NON AFRICAN AMERICAN 31 ML/MIN (>=60); GLUCOSE, SERUM 59 MG/DL (60-99); PHOSPHORUS, SERUM 4.3 MG/DL (2.5-4.5); SODIUM, SERUM 143 MMOL/L (135-148)
[2016-04-16 06:10] LABS: T PROTEIN (ELECT)(NOT OR 6.9 G/DL (6.0-8.5)
[2016-04-16 06:14] LABS: MANUAL DIFF NO %
[2016-04-16 10:24] LABS: ANA TITER <1:40 TITER
[2016-04-16 11:03] LABS: A/G 1.21 RATIO (0.9-2.10); ALB RELATIVE % 54.7 % (60.0-89.0); ALBUMIN (ELECTRO) 3.77 GM/DL (3.2-5.5); ALPHA 1 (ELECTRO) 0.31 GM/DL (0.1-0.4); ALPHA 1 RELAT % (NOT ORD) 4.5 % (1.0-4.0); ALPHA 2 (ELECTRO) 1.01 GM/DL (0.5-1.10); ALPHA 2 RELAT % 14.6 % (4.5-26.0); BETA GLOBULIN (SPE) 0.92 GM/DL (0.60-1.30); BETA RELATIVE % 13.4 % (9.0-22.0); GAMMA GLOBULIN (SPE) 0.88 G/DL (0.70-1.60); GAMMA RELAT % 12.8 % (6.0-22.0)
[2016-04-17 04:48] LABS: # HR UR COLLECT (NOT ORD) 24; URINE TOTAL VOL (NOT ORD) 6625 ML
[2016-04-17 05:01] LABS: CREATININE, URINE 38.4 MG/DL
[2016-04-17 05:02] LABS: URINE CREAT 2.54 G/T VOL (0.6-2.8)
[2016-04-17 05:14] LABS: ALBUMIN 3.1 G/DL (3.5-5.0); CALCIUM, SERUM 8.8 MG/DL (8.5-10.4); CHLORIDE, SERUM 101 MMOL/L (96-112); CO2 (CARBON DIOXIDE) 31 MMOL/L (24-34); CREATININE 2.53 MG/DL (0.70-1.30); GFR AFRICAN AMERICAN 31 ML/MIN (>=60); GFR NON AFRICAN AMERICAN 27 ML/MIN (>=60); PHOSPHORUS, SERUM 4.7 MG/DL (2.5-4.5); POTASSIUM, SERUM 4.3 MMOL/L (3.5-5.3); SODIUM, SERUM 141 MMOL/L (135-148)
[2016-04-17 05:15] LABS: BUN (BLOOD UREA NITROGEN) 49 MG/DL (6-23); GLUCOSE, SERUM 144 MG/DL (60-99)
[2016-04-17 05:19] LABS: BASOPHILS 0.3 %; BASOPHILS ABSOLUTE 0.02 10/3/uL (0.0-0.16); EOSINOPHILS 2.7 %; EOSINOPHILS ABSOLUTE 0.18 10/3/uL (0.0-0.53); HEMATOCRIT 32.3 % (40.0-51.0); HEMOGLOBIN 10.3 g/dL (13.6-17.8); IMMATURE GRANULOCYTES 0.3 %; IMMATURE GRANULOCYTES ABSOLUTE 0.02 10/3/uL (0.0-0.11); LYMPHOCYTES 21.9 %; LYMPHOCYTES ABSOLUTE 1.45 10/3/uL (0.67-4.30); MEAN CORPUS HGB CONC 31.9 g/dL (32.0-36.0); MEAN PLATELET VOLUME 9.6 fL (9.2-13.0); MONOCYTES 5.7 %; MONOCYTES ABSOLUTE 0.38 10/3/uL (0.21-1.20); NEUTROPHILS 69.1 %; NEUTROPHILS ABSOLUTE 4.58 10/3/uL (2.02-8.40); PLATELET COUNT 289 10/3/uL (150-400); RBC DISTRIBUTION WIDTH 15.5 % (12.0-16.0); RED CELL COUNT 3.55 10/6/uL (4.7-6.1); WHITE BLOOD CELLS 6.6 10/3/uL (4.5-10.5)
[2016-04-17 05:20] LABS: MANUAL DIFF NO %
[2016-04-17 06:02] LABS: CREAT CLEAR (NOT ORDER) 69.8 ML/MIN (85-125); CREAT SERUM (NOT ORDER) 2.53 MG/DL (0.53-1.43); T.P. URINE (NOT ORDER RAN 101.1 MG/DL; T.P.24HR UR (NOT ORDER) 6698 MG/24HR (40-150); T.V. 24HR UR (NOT ORD) 6625 ML (600-1600)
[2016-04-18 05:43] LABS: BASOPHILS 0.2 %; BASOPHILS ABSOLUTE 0.01 10/3/uL (0.0-0.16); EOSINOPHILS 3.1 %; EOSINOPHILS ABSOLUTE 0.17 10/3/uL (0.0-0.53); HEMATOCRIT 29.9 % (40.0-51.0); HEMOGLOBIN 9.4 g/dL (13.6-17.8); IMMATURE GRANULOCYTES 0.2 %; IMMATURE GRANULOCYTES ABSOLUTE 0.01 10/3/uL (0.0-0.11); LYMPHOCYTES 23.4 %; LYMPHOCYTES ABSOLUTE 1.28 10/3/uL (0.67-4.30); MEAN CORPUS HGB CONC 31.4 g/dL (32.0-36.0); MEAN CORPUSCULAR HEMOGLOB 28.3 pg (26.0-34.0); MEAN CORPUSCULAR VOLUME 90.1 fL (80-100); MEAN PLATELET VOLUME 9.7 fL (9.2-13.0); MONOCYTES 5.7 %; MONOCYTES ABSOLUTE 0.31 10/3/uL (0.21-1.20); NEUTROPHILS 67.4 %; NEUTROPHILS ABSOLUTE 3.69 10/3/uL (2.02-8.40); PLATELET COUNT 265 10/3/uL (150-400); RBC DISTRIBUTION WIDTH 15.7 % (12.0-16.0); RED CELL COUNT 3.32 10/6/uL (4.7-6.1); WHITE BLOOD CELLS 5.5 10/3/uL (4.5-10.5)
[2016-04-18 05:44] LABS: MANUAL DIFF NO %
[2016-04-18 05:58] LABS: CALCIUM, SERUM 8.5 MG/DL (8.5-10.4); CHLORIDE, SERUM 98 MMOL/L (96-112); CO2 (CARBON DIOXIDE) 33 MMOL/L (24-34); CREATININE 2.67 MG/DL (0.70-1.30); GFR AFRICAN AMERICAN 29 ML/MIN (>=60); GFR NON AFRICAN AMERICAN 25 ML/MIN (>=60); GLUCOSE, SERUM 157 MG/DL (60-99); PHOSPHORUS, SERUM 5.1 MG/DL (2.5-4.5); POTASSIUM, SERUM 4.7 MMOL/L (3.5-5.3); SODIUM, SERUM 138 MMOL/L (135-148)
[2016-04-18 06:00] LABS: BUN (BLOOD UREA NITROGEN) 58 MG/DL (6-23)
[2016-04-19 05:43] LABS: ALBUMIN 3.1 G/DL (3.5-5.0); CALCIUM, SERUM 8.8 MG/DL (8.5-10.4); CHLORIDE, SERUM 98 MMOL/L (96-112); CO2 (CARBON DIOXIDE) 34 MMOL/L (24-34); CREATININE 2.48 MG/DL (0.70-1.30); GFR AFRICAN AMERICAN 31 ML/MIN (>=60); GFR NON AFRICAN AMERICAN 27 ML/MIN (>=60); PHOSPHORUS, SERUM 4.7 MG/DL (2.5-4.5); POTASSIUM, SERUM 4.6 MMOL/L (3.5-5.3); SODIUM, SERUM 141 MMOL/L (135-148)
[2016-04-19 05:45] LABS: BUN (BLOOD UREA NITROGEN) 62 MG/DL (6-23); GLUCOSE, SERUM 79 MG/DL (60-99)
[2016-04-20 04:26] LABS: BASOPHILS 0.4 %; BASOPHILS ABSOLUTE 0.02 10/3/uL (0.0-0.16); EOSINOPHILS ABSOLUTE 0.16 10/3/uL (0.0-0.53); HEMOGLOBIN 10.3 g/dL (13.6-17.8); LYMPHOCYTES 21.5 %; LYMPHOCYTES ABSOLUTE 1.15 10/3/uL (0.67-4.30); MEAN CORPUS HGB CONC 31.3 g/dL (32.0-36.0); MEAN CORPUSCULAR HEMOGLOB 28.5 pg (26.0-34.0); MEAN CORPUSCULAR VOLUME 91.1 fL (80-100); MEAN PLATELET VOLUME 9.2 fL (9.2-13.0); MONOCYTES 5.2 %; MONOCYTES ABSOLUTE 0.28 10/3/uL (0.21-1.20); NEUTROPHILS 69.9 %; NEUTROPHILS ABSOLUTE 3.74 10/3/uL (2.02-8.40); PLATELET COUNT 248 10/3/uL (150-400); RBC DISTRIBUTION WIDTH 14.7 % (12.0-16.0); RED CELL COUNT 3.61 10/6/uL (4.7-6.1); WHITE BLOOD CELLS 5.4 10/3/uL (4.5-10.5)
[2016-04-20 04:27] LABS: HEMATOCRIT 32.9 % (40.0-51.0); MANUAL DIFF NO %
[2016-04-20 04:30] LABS: INTERNATIONAL NORMAL RATI 1.3 UNITS (-); PROTIME (NOT ORD) 16.3 SEC (12.0-14.5)
[2016-04-20 04:39] LABS: BUN (BLOOD UREA NITROGEN) 64 MG/DL (6-23); CALCIUM, SERUM 9.6 MG/DL (8.5-10.4); CHLORIDE, SERUM 94 MMOL/L (96-112); CO2 (CARBON DIOXIDE) 34 MMOL/L (24-34); CREATININE 2.53 MG/DL (0.70-1.30); GFR AFRICAN AMERICAN 31 ML/MIN (>=60); GFR NON AFRICAN AMERICAN 27 ML/MIN (>=60); POTASSIUM, SERUM 4.3 MMOL/L (3.5-5.3); SODIUM, SERUM 136 MMOL/L (135-148)
[2016-04-20 04:40] LABS: GLUCOSE, SERUM 181 MG/DL (60-99)
[2016-04-21 04:58] LABS: BASOPHILS 0.5 %; BASOPHILS ABSOLUTE 0.03 10/3/uL (0.0-0.16); EOSINOPHILS ABSOLUTE 0.18 10/3/uL (0.0-0.53); HEMATOCRIT 34.4 % (40.0-51.0); HEMOGLOBIN 10.8 g/dL (13.6-17.8); IMMATURE GRANULOCYTES 0.3 %; IMMATURE GRANULOCYTES ABSOLUTE 0.02 10/3/uL (0.0-0.11); LYMPHOCYTES 22.6 %; LYMPHOCYTES ABSOLUTE 1.37 10/3/uL (0.67-4.30); MEAN CORPUS HGB CONC 31.4 g/dL (32.0-36.0); MEAN CORPUSCULAR HEMOGLOB 28.6 pg (26.0-34.0); MEAN CORPUSCULAR VOLUME 91.2 fL (80-100); MEAN PLATELET VOLUME 8.9 fL (9.2-13.0); MONOCYTES 6.1 %; MONOCYTES ABSOLUTE 0.37 10/3/uL (0.21-1.20); NEUTROPHILS 67.5 %; NEUTROPHILS ABSOLUTE 4.08 10/3/uL (2.02-8.40); PLATELET COUNT 243 10/3/uL (150-400); RBC DISTRIBUTION WIDTH 14.4 % (12.0-16.0); RED CELL COUNT 3.77 10/6/uL (4.7-6.1); WHITE BLOOD CELLS 6.1 10/3/uL (4.5-10.5)
[2016-04-21 04:59] LABS: MANUAL DIFF NO %
[2016-04-21 05:04] LABS: INTERNATIONAL NORMAL RATI 1.3 UNITS (-); PROTIME (NOT ORD) 15.9 SEC (12.0-14.5)
[2016-04-21 05:12] LABS: BUN (BLOOD UREA NITROGEN) 67 MG/DL (6-23); CALCIUM, SERUM 10.1 MG/DL (8.5-10.4); CHLORIDE, SERUM 95 MMOL/L (96-112); CO2 (CARBON DIOXIDE) 37 MMOL/L (24-34); CREATININE 2.71 MG/DL (0.70-1.30); GFR AFRICAN AMERICAN 28 ML/MIN (>=60); GFR NON AFRICAN AMERICAN 24 ML/MIN (>=60); GLUCOSE, SERUM 182 MG/DL (60-99); POTASSIUM, SERUM 4.7 MMOL/L (3.5-5.3); SODIUM, SERUM 139 MMOL/L (135-148)
[2016-04-21] MEDS ORDERED: MIRALAX POWDER1 PKT PO (18:03)
[2016-04-21] MEDS ORDERED: PROTONIX PO ×2 (18:04→18:05)
[2016-04-21] MEDS ORDERED: SIN25 PO (18:06)
== END 2016-04-21 18:35 | disposition home or self-care (01) | DRG 242 ==
LOC: ER 10:25 → 7NO 11:42
PROVIDERS: Emergency Medicine; Internal Medicine Interventional Cardiology; Internal Medicine Nephrology
PROC: 0JH606Z Insertion of Pacemaker, Dual Chamber into Chest Subcutaneous Tissue and Fascia, Open Approach (ICD-10-PCS; principal; 2016-04-21)
PROC: 02HK3JZ Insertion of Pacemaker Lead into Right Ventricle, Percutaneous Approach (ICD-10-PCS; 2016-04-21)
PROC: 02H63JZ Insertion of Pacemaker Lead into Right Atrium, Percutaneous Approach (ICD-10-PCS; 2016-04-21)
DX: I13.0 Hypertensive heart and chronic kidney disease with heart failure and stage 1 through stage 4 chronic kidney disease, or unspecified chronic kidney disease (principal); I50.23 Acute on chronic systolic (congestive) heart failure; E11.40 Type 2 diabetes mellitus with diabetic neuropathy, unspecified; N17.9 Acute kidney failure, unspecified; Z68.41 Body mass index [BMI] 40.0-44.9, adult; N18.3 Chronic kidney disease, stage 3 (moderate); E78.5 Hyperlipidemia, unspecified; E11.9 Type 2 diabetes mellitus without complications; M54.9 Dorsalgia, unspecified; K59.00 Constipation, unspecified; E66.01 Morbid (severe) obesity due to excess calories; G47.33 Obstructive sleep apnea (adult) (pediatric); R00.1 Bradycardia, unspecified; M19.90 Unspecified osteoarthritis, unspecified site; K58.9 Irritable bowel syndrome, unspecified; E11.319 Type 2 diabetes mellitus with unspecified diabetic retinopathy without macular edema; G25.81 Restless legs syndrome; F17.290 Nicotine dependence, other tobacco product, uncomplicated; G89.29 Other chronic pain; N50.89 Other specified disorders of the male genital organs; I25.119 Atherosclerotic heart disease of native coronary artery with unspecified angina pectoris; T44.7X5A Adverse effect of beta-adrenoreceptor antagonists, initial encounter; Z79.4 Long term (current) use of insulin; Z86.73 Personal history of transient ischemic attack (TIA), and cerebral infarction without residual deficits; Z82.49 Family history of ischemic heart disease and other diseases of the circulatory system; Z91.11 Patient's noncompliance with dietary regimen; Z95.1 Presence of aortocoronary bypass graft; Z90.49 Acquired absence of other specified parts of digestive tract
CPT/HCPCS: 33208; 36600; 71010; 76775; 80048; 80069; 81050; 82575; 82805; 82962; 83735; 83880; 84155; 84156; 84165; 84484; 85025; 85610; 85730; 86039; 86160; 93005; 96374; 99291; A9270-GY; C1785; C1892; C1898; J0690; J2250; J3010